=== PATIENT | female | born 1935 | race Caucasian/White ===

== ENCOUNTER 2016-12-04 16:07 | Emergency (ER) | payer OTHER, MEDICARE, BC ==
[~2016-12-04] VITALS: Ht 160 cm; Wt 81.6 kg
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
[2016-12-04 16:59] LABS: LYMPH # 2.1 K/mm3 (0.7-4.5); LYMPH % 16.3 % (10-50.0)
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
[2016-12-04] MEDS ORDERED: ZANTAC 150150 MG PO (18:03)
[2016-12-04] MEDS ORDERED: Mobic7.5 MG PO (18:03)
[2016-12-04 18:39] VITALS: BP 185/90
== END 2016-12-04 18:40 | disposition home or self-care (01) ==
LOC: ER 16:07
PROVIDERS: Emergency Medicine
DX: S51.802A Unspecified open wound of left forearm, initial encounter (principal); V49.40XA Driver injured in collision with unspecified motor vehicles in traffic accident, initial encounter; Y92.410 Unspecified street and highway as the place of occurrence of the external cause; M47.892 Other spondylosis, cervical region; M47.895 Other spondylosis, thoracolumbar region; M16.11 Unilateral primary osteoarthritis, right hip

== ENCOUNTER → 2017-02-17 | Outpatient (CLI) | payer MEDICARE, BC ==
[~2017-02-17] MED LIST: Mobic7.5 MG PO; ZANTAC 150150 MG PO
--- NOTE | 2017-02-20 07:55 | RADIOLOGY REPORT PS360 ---
DIG MAMM-SCREEN ADELINE W/CAD ORDERING PHYSICIAN : Delaney Fields MD PATIENT AGE: 81 years GENDER: Female COMPARISON: May 2012, November 2014, October 2013 also 3 2011 HISTORY:81-year-old. No hormones. No new complaints. Family history. Paternal grandmother mother breast cancer i & n paternal aunt TECHNIQUE: Std CC & MLO images were obtained. R2 CAD reviewed. FINDINGS: . Minimal residual fibroglandular elements bilaterally. No new mass nor nor architectural distortion evident. Moderately dense small vessel vascular calcifications bilaterally again noted with breast RIGHT BREAST: Minimal nodularity posterior to the nipple is remain stable and likely reflects a generous duct. Other areas of density right breast unchanged since 2014 and 2012 LEFT BREAST: No new areas of concern IMPRESSION: Stable bilateral mammogram follow-up in one year recommended BI-RADS CATEGORY: 1_Negative RECOMMENDED FOLLOWUP: 12M 12 MONTH FOLLOW-UP (A letter has been sent to the patient regarding results of the study.)
== END ==
LOC: RAD 08:19
DX: Z12.31 Encounter for screening mammogram for malignant neoplasm of breast (principal)
CPT/HCPCS: G0202